=== PATIENT | male | born 1955 | race Two or more races ===

== ENCOUNTER 2017-04-02 19:53 | Emergency (ER) | payer SELFPAY ==
[~2017-04-02] VITALS: Ht 180.3 cm; Wt 83.9 kg
[2017-04-02 20:40] VITALS: BP 128/87
[2017-04-02 21:27] LABS: BASOPHILS % (AUTO) 1.6 % (0.0-2.0); EOSINOPHILS % (AUTO) 3.7 % (0.0-3.0); LYMPHOCYTES % (AUTO) 39.4 % (20.0-45.0); MEAN CORPUSCULAR HEMOGLOBIN 32.4 PG (27.0-31.0); MEAN CORPUSCULAR HGB CONC 33.6 G/DL (32.0-36.0); MEAN CORPUSCULAR VOLUME 96 FL (80-99); MEAN PLATELET VOLUME 6.9 FL (6.5-10.1); MONOCYTES % (AUTO) 8.3 % (1.0-10.0); PLATELET COUNT 163 K/UL (150-450); RED BLOOD COUNT 3.71 M/UL (4.70-6.10); RED CELL DISTRIBUTION WIDTH 15.5 % (11.6-14.8); WHITE BLOOD COUNT 5.1 K/UL (4.8-10.8)
[2017-04-02 21:42] LABS: TROPONIN I < 0.30 ng/mL (<=0.30)
[2017-04-02 21:48] LABS: ALANINE AMINOTRANSFERASE 35 U/L (3-41); ALBUMIN/GLOBULIN RATIO 0.9 (1.0-2.7); ALCOHOL 268 mg/dL; ANION GAP 17 (5-15); ASPARTATE AMINO TRANSFERASE 73 U/L (5-40); CALCIUM 9.2 mg/dL (8.6-10.2); CARBON DIOXIDE 22 mEQ/L (20-30); CHLORIDE 104 mEQ/L (98-107); CREATININE 0.6 mg/dL (0.7-1.2); GLOMERULAR FILTRATION RATE > 60 mL/min (>60); HEMOLYSIS 3; POTASSIUM 3.7 mEQ/L (3.4-4.9); SODIUM 143 mEQ/L (135-145); TOTAL PROTEIN 8.7 g/dL (6.6-8.7)
--- NOTE | 2017-04-02 21:49 | Emergency Room Report ---
History of Present Illness General Chief Complaint: Lower Extremity Injury Source: Patient (Mario Horner M.D.) Present Illness HPI Patient presents as 3 months of right leg infection. The patient initially was scratched by a palm frond. He states that tetanus was given to them four months ago. He states he's not had fevers or chills. The pain is increasing and is also swelling in the leg there. The pain is somewhat worse at this time. There is no recent trauma. The pain is 5/5. In the past he did receive antibiotics, early in the course. No antibiotics recently. No meds taken for pain. No prior h/o clots, hemoptysis, drainage, numbness, chest pain, NVD, melena, dysuria. His family member states he has a problem with drinking alcohol. He denies drinking today. (Mario Horner M.D.) Allergies: Coded Allergies: No Known Allergies (Unverified , 04/02/17) Patient History Past Medical History: see triage record Social History: Reports: alcohol use Social History Narrative on streets Reviewed Nursing Documentation: PMH: Agreed, PSxH: Agreed (Mario Horner M.D.) Nursing Documentation-PMH Past Medical History: No Stated History (Mario Horner M.D.) Review of Systems All Other Systems: negative except mentioned in HPI (Mario Horner M.D.) Physical Exam Vital Signs Date Time Temp Pulse Resp B/P (MAP) Pulse Ox O2 Delivery O2 Flow Rate FiO2 04/02/17 20:18 97.9 98 19 187/104 95 Room Air Sp02 EP Interpretation: reviewed, normal, other - slightly low General Appearance: no apparent distress, GCS 15, non-toxic, other - dishevelled, Head: normocephalic Eyes: bilateral eye PERRL, bilateral eye Scleral Injection ENT: moist mucus membranes Neck: supple Respiratory: chest non-tender, lungs clear, normal breath sounds Cardiovascular #1: regular rate, rhythm, edema - bilat, worse on R Cardiovascular #2: 2+ radial (R), 2+ dorsalis pedis (R), 2+ dorsalis pedis (L) Gastrointestinal: normal inspection, normal bowel sounds, non tender, no mass, non-distended Musculoskeletal: back normal, gait/station normal, normal range of motion, no calf tenderness - but lower leg swelling and diffuse tenderness Neurologic: alert, oriented x3, motor strength/tone normal, DTRs symmetric, sensory intact, cerebellar normal, normal gait, speech normal Psychiatric: mood/affect normal Skin: warm/dry, other - erythema and excoriations with some eschar formation, no fluctuance (Mario Horner M.D.) Medical Decision Making Diagnostic Impression: Primary Impression: Cellulitis Qualified Codes: L03.115 - Cellulitis of right lower limb Additional Impression: Alcohol abuse ER Course Patient presents with right lower leg pain and swelling. States the pain is worse. It is a chronic infection there. Differential includes cellulitis, chronic venous stasis ulcers amongst others. The patient was evaluated with EKG , labs and x-ray. We need to r/o oseto. Exam is against PE or DVT. Labs with normal WBC and lytes. ESR is slightly high. Blood alcohol +. Xrays are negative for osteo. Patient is improved with treatment. This appears to be a chronic problem and whatever has made this worse will most likely will respond to by mouth antibiotics and analgesics. Significant other understands need to find PMD/clinic to follow patient. Also patient understands need to decrease or cease alcohol. Patient ambulates without difficulty. Patient stable for outpatient observation and treatment. Laboratory Tests Test 04/02/17 20:22 04/02/17 20:55 Urine Color Pale yellow Urine Appearance Clear Urine pH 5 (4.5-8.0) Urine Specific [place] 1.005 (1.005-1.035) Urine Protein Negative (NEGATIVE) Urine Glucose (UA) Negative (NEGATIVE) Urine Ketones Negative (NEGATIVE) Urine Occult Blood Negative (NEGATIVE) Urine Nitrite Negative (NEGATIVE) Urine Bilirubin Negative (NEGATIVE) Urine Urobilinogen Normal MG/DL (0.0-1.0) Urine Leukocyte Esterase Negative (NEGATIVE) Urine Opiates Screen Negative (NEGATIVE) Urine Barbiturates Screen Negative (NEGATIVE) Phencyclidine (PCP) Screen Negative (NEGATIVE) Urine Amphetamines Screen Negative (NEGATIVE) Urine Benzodiazepines Screen Negative (NEGATIVE) Urine Cocaine Screen Negative (NEGATIVE) Urine Marijuana (THC) Screen Negative (NEGATIVE) White Blood Count 5.1 K/UL (4.8-10.8) Red Blood Count 3.71 M/UL (4.70-6.10) L Hemoglobin 12.0 G/DL (14.2-18.0) L Hematocrit 35.8 % (42.0-52.0) L Mean Corpuscular Volume 96 FL (80-99) Mean Corpuscular Hemoglobin 32.4 PG (27.0-31.0) H Mean Corpuscular Hemoglobin Concent 33.6 G/DL (32.0-36.0) Red Cell Distribution Width 15.5 % (11.6-14.8) H Platelet Count 163 K/UL (150-450) Mean Platelet Volume 6.9 FL (6.5-10.1) Neutrophils (%) (Auto) 47.0 % (45.0-75.0) Lymphocytes (%) (Auto) 39.4 % (20.0-45.0) Monocytes (%) (Auto) 8.3 % (1.0-10.0) Eosinophils (%) (Auto) 3.7 % (0.0-3.0) H Basophils (%) (Auto) 1.6 % (0.0-2.0) Erythrocyte Sedimentation Rate 49 MM/HR (0-20) H Prothrombin Time 10.8 SEC (9.30-11.50) Prothrombin Time INR 1.1 (0.9-1.1) PTT 28 SEC (23-33) Sodium Level 143 mEQ/L (135-145) Potassium Level 3.7 mEQ/L (3.4-4.9) Chloride Level 104 mEQ/L (98-107) Carbon Dioxide Level 22 mEQ/L (20-30) Anion Gap 17 (5-15) H Blood Urea Nitrogen 5 mg/dL (7-23) L Creatinine 0.6 mg/dL (0.7-1.2) L Estimate Glomerular Filtration Rate > 60 mL/min (>60) Glucose Level 110 mg/dL (74-106) H Lactic Acid Level 1.30 mmol/L (0.66-2.22) Calcium Level 9.2 mg/dL (8.6-10.2) Total Bilirubin 0.4 mg/dL (0.0-1.2) Aspartate Amino Transferase (AST) 73 U/L (5-40) H Alanine Aminotransferase (ALT) 35 U/L (3-41) Alkaline Phosphatase 122 U/L (40-129) Total Creatine Kinase 305 U/L (38-174) H Troponin I < 0.30 ng/mL (<=0.30) Pro-B-Type Natriuretic Peptide 39 pg/mL (0-125) Total Protein 8.7 g/dL (6.6-8.7) Albumin 4.2 g/dL (3.5-5.2) Globulin 4.5 g/dL Albumin/Globulin Ratio 0.9 (1.0-2.7) L Serum Alcohol 268 mg/dL (Mario Horner M.D.) ER Course I was called this afternoon with report from radiology possible tib-fib pathology such as fracture, which cannot be ruled out. On attempt of contacting the patient there is no former provided and no address therefore at this time or unable to have any further contact,, (STEPHANIE GAN D.O.) Rhythm Strip Diag. Results EP Interpretation: yes Rhythm: NSR, no PVC's, no ectopy (Mario Horner M.D.) Other X-Ray Diagnostic Results Other X-Ray Diagnostic Results : X-Ray ordered: tib fib # of Views/Limited Vs Complete: 2 View Indication: Swelling Interpretation: no dislocation, other - no osteo, STS Impression: Other Interpreting ER Provider: Signed Mario Horner MD (Mario Horner M.D.) Last Vital Signs Date Time Temp Pulse Resp B/P (MAP) Pulse Ox O2 Delivery O2 Flow Rate FiO2 04/02/17 23:16 85 21 133/86 94 04/02/17 23:15 98.5 Room Air Status: improved (Mario Horner M.D.) Disposition: HOME, SELF-CARE Condition: Improved Scripts Ibuprofen* (MOTRIN*) 600 Mg Tablet 600 MG ORAL Q6H Y for For Pain, #20 TAB Prov: Mario Horner M.D. 04/02/17 Bacitracin (Bacitracin) 28.4 Gm Oint...g. 1 APPLIC TOPIC THREE TIMES A DAY, #30 GM Prov: Mario Horner M.D. 04/02/17 Trimethoprim/Sulfamethoxazole 160/800* (BACTRIM DS TABLET*) 1 Each Tablet 1 TAB ORAL Q12H, #14 TAB 0 Refills Prov: Mario Horner M.D. 04/02/17 Mario Horner M.D. Apr 02, 2017 21:49 STEPHANIE GAN D.O. Apr 03, 2017 11:07
[2017-04-02 21:53] LABS: INR 1.1 (0.9-1.1); PROTHROMBIN TIME 10.8 SEC (9.30-11.50)
[2017-04-02 22:28] LABS: ERYTHROCYTE SEDIMENTATION RATE 49 MM/HR (0-20)
[2017-04-02] MEDS ORDERED: Bactrim DS (160mg/800mg) tab ORAL ONE (22:30)
[2017-04-02] MEDS ORDERED: BACITRACIN15 GM TOPIC (22:32)
[2017-04-02] MEDS ORDERED: BACTRIM DS TAB1 EAC1 ORAL (22:32)
[2017-04-02] MEDS ORDERED: IBUPROFEN600 MG ORAL (22:32)
[2017-04-02 23:10] LABS: APPEARANCE,URINE CLEAR; KETONES,URINE NEGATIVE (NEGATIVE); LEUKOCYTE ESTERASE ,URINE NEGATIVE (NEGATIVE); NITRITE,URINE NEGATIVE (NEGATIVE); PH,URINE 5 (4.5-8.0); PROTEIN,URINE NEGATIVE (NEGATIVE); UROBILINOGEN,URINE NORMAL MG/DL (0.0-1.0)
[2017-04-02 23:16] VITALS: BP 133/86
--- NOTE | 2017-04-03 11:12 | Diagnostic Imaging Report ---
Indication: Pain Comparison: None Findings: Two views of the right tibia and fibula were obtained. There is a questionable fracture involving the proximal tibia extending into the area of the tibial spines. Further evaluation and clinical correlation recommended. Bones are osteopenic. Vascular consultations are present. Impression: Suspected fracture involving the proximal tibia. Note: Findings were conveyed and discussed with the emergency department physician Dr. Garrido at 11:04, 04/03/17
--- NOTE | 2017-04-03 11:21 | Diagnostic Imaging Report ---
Indication: Dyspnea Comparison: None A single view chest radiograph was obtained. Findings: Cardiomediastinal appearance is within normal limits for age. Pulmonary vascularity is appropriate. The diaphragmatic contour is smooth and costophrenic angles are sharp. No pleural effusions are identified. The bones are unremarkable. Impression: No acute findings
== END 2017-04-03 02:08 | disposition home or self-care (01) ==
LOC: EMR 22:31
DX: L03.115 Cellulitis of right lower limb (principal); F10.10 Alcohol abuse, uncomplicated; M85.861 Other specified disorders of bone density and structure, right lower leg
CPT/HCPCS: 36415; 71010; 73590; 80053; 80300; 81003; 82550; 83605; 83880; 84484; 85025; 85610; 85651; 85730; 96360; 99284; G0480; 80329